=== PATIENT | female | born 1970 | race Two or more races ===

== ENCOUNTER 2016-09-03 22:06 | Emergency (ER) | payer OTHER ==
[2016-09-03 22:16] VITALS: RESP 16
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
[2016-09-03] MEDS ORDERED: IBUPROFEN 200 MG TAB PO ONE (22:26)
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
[2016-09-04 00:06] VITALS: BP 125/81; PULSE 73; TEMP 98.6; O2SAT 94
== END 2016-09-04 00:06 | disposition home or self-care (01) ==
LOC: EDUNIT#
DX: S89.91XA Unspecified injury of right lower leg, initial encounter (principal); V49.50XA Passenger injured in collision with unspecified motor vehicles in traffic accident, initial encounter; Y92.410 Unspecified street and highway as the place of occurrence of the external cause
CPT/HCPCS: L1830

== ENCOUNTER → 2017-04-17 | Outpatient (CLI) | payer OTHER | LOC: FIMAGING 15:28 | DX: Z12.31 Encounter for screening mammogram for malignant neoplasm of breast (principal) | CPT/HCPCS: G0202 ==

== ENCOUNTER → 2018-08-20 | Outpatient (CLI) | payer OTHER | LOC: FIMAGING 14:04 | DX: Z12.31 Encounter for screening mammogram for malignant neoplasm of breast (principal) ==